=== PATIENT | male | born 1985 | race Caucasian/White ===

== ENCOUNTER 2019-09-11 10:07 | Emergency (ER) | payer BC, OTHER ==
[~2019-09-11] VITALS: Ht 165.1 cm; Wt 72.6 kg
[~2019-09-11 10:07] MED LIST: PENICILLIN VK500 M1 PO; PERCOCET 5-3251 EACH PO
[2019-09-11 10:12] VITALS: BP 140/75
[2019-09-11] MEDS ORDERED: TOBRADEX EYE DRO5 ML OPHTHALMIC (11:16)
== END 2019-09-11 11:10 | disposition home or self-care (01) ==
LOC: ER 10:07
DX: S05.02XA Injury of conjunctiva and corneal abrasion without foreign body, left eye, initial encounter (principal); F17.210 Nicotine dependence, cigarettes, uncomplicated; X58.XXXA Exposure to other specified factors, initial encounter; Y92.89 Other specified places as the place of occurrence of the external cause; Y93.89 Activity, other specified; Y99.8 Other external cause status